=== PATIENT | female | born 1975 | race Caucasian/White ===

== ENCOUNTER → 2017-08-07 | Outpatient (CLI) | payer BC | LOC: M.ULTRA 11:26 | DX: N64.59 Other signs and symptoms in breast (principal) ==

== ENCOUNTER → 2018-02-05 | Outpatient (CLI) | payer BC | LOC: M.RAD 08:38 | DX: N63.10 Unspecified lump in the right breast, unspecified quadrant (principal); N63.20 Unspecified lump in the left breast, unspecified quadrant; R92.8 Other abnormal and inconclusive findings on diagnostic imaging of breast ==

== ENCOUNTER → 2018-07-15 | Outpatient (CLI) | payer BC | LOC: M.ULTRA 09:55 | DX: N64.59 Other signs and symptoms in breast (principal) ==

== ENCOUNTER → 2019-01-02 | Outpatient (CLI) | payer BC | LOC: M.RAD 12-30 15:20 | DX: N63.23 Unspecified lump in the left breast, lower outer quadrant (principal); R92.2 Inconclusive mammogram ==

== ENCOUNTER → 2020-01-12 | Outpatient (CLI) | payer BC | LOC: M.RAD 09:00 | PROVIDERS: ATTEND Family Medicine | DX: Z12.31 Encounter for screening mammogram for malignant neoplasm of breast (principal) ==

== ENCOUNTER → 2021-01-13 | Outpatient (CLI) | payer BC | LOC: M.RAD 08:56 | PROVIDERS: ATTEND Family Medicine | DX: Z12.31 Encounter for screening mammogram for malignant neoplasm of breast (principal) ==